=== PATIENT | female | born 1955 | race Caucasian/White ===

== ENCOUNTER 2017-03-02 06:31 | Inpatient (IN) ==
[2017-03-02] MEDS ORDERED: 0.9 % Sodium Chloride 1,000 ML IVC ONE (06:46)
[2017-03-02] MEDS ORDERED: Aspirin 81 MG TAB.CHEW PO ONE (06:46)
--- NOTE | 2017-03-02 07:09 | Emergency Department Note ---
Disposition Clinical Impression: CVA (cerebral vascular accident) Qualifiers: CVA mechanism: unspecified Qualified Code(s): I63.9 - Cerebral infarction, unspecified Disposition: Admitted As Inpatient Condition: Fair Time of Disposition: 08:36 Neuro HPI - General Chief Complaint: ED Neuro Symptoms/Deficit Stated Complaint: "possible stroke" Time Seen by Provider: 03/02/17 06:37 Source: patient, family Limitations: no limitations Nursing Notes Reviewed: Yes Vital Signs Reviewed: Yes - History of Present Illness HPI Narrative: Patient is a 61-year-old female who presents to [facility] ED with a chief complaint of left-sided weakness. She is present with her sister who states she went to visit the patient on February 27 and noticed that she was dragging her left leg and walking with a crutch. Then patient was doing the same thing again on February 28 and patient reports that she tried to get a 7-Up and dropped it. Around 4 AM this morning, the sister checked on her and realized that she had fallen in the bathroom. Denies loss of consciousness. Patient is not on any blood thinning medications. At baseline, patient is able to walk, she is able to read very basic words. She is MRDD. Denies any nausea, vomiting, fever or chills. No difficulty with speech from her baseline. No visual changes or changes in hearing. No chest pain, difficulty breathing, abdominal pain, problems with urination or bowel movements. Onset of Symptoms Date: 02/27/17 Symptom Onset Unknown: Yes Timing confirmed by: family member Location: left arm, left leg History of same: No Severity: moderate Quality: weakness Symptoms Improving: No Improves with: none Worsens with: none Context: gradual onset, recent fall On Anticoagulants: No Associated symptoms: Reports: denies other symptoms, weakness. Denies: chest pain, cough, fever/chills, nausea/vomiting, shortness of breath Treatments Prior to Arrival: none - Related Data Home Medications: Home Medications Medication Instructions Recorded Confirmed FLUoxetine HCl [PROzac] 20 mg PO DAILY 08/26/16 03/02/17 Simvastatin [Zocor] 40 mg PO HS 08/26/16 03/02/17 Divalproex (24 HR) [Depakote ER 250 mg PO QAM 03/02/17 03/02/17 (24 HR)] Divalproex (24 HR) [Depakote ER 500 mg PO HS 03/02/17 03/02/17 (24 HR)] Gabapentin [Neurontin] 800 mg PO TID 03/02/17 03/02/17 Allergies/Adverse Reactions: Allergies Allergy/AdvReac Type Severity Reaction Status Date / Time No Known Allergies Allergy Verified 08/26/16 08:19 All systems ED: reviewed and negative except as stated. Past Medical History - Past Medical History Attestation: Yes The following information was validated with the patient. Source: patient Medical history: Reports: hyperlipidemia Psychiatric history: Reports: bipolar - Social History Smoking Status: Current every day smoker Alcohol use: Reports: none Drug use: Reports: none Physical Exam CONSTITUTIONAL: Well-appearing; well-nourished; A&O X3, in no apparent distress , no evidence of shock HEAD: Normocephalic; atraumatic. No sylvester sign, raccoon eyes or evidence of CSF drainage EYES: PERRL, EOMI, no scleral icterus EARS: No hemotympanum or TM rupture, no otorrhea NECK: No tracheal deviation, JVD, or hematoma. Palpation of the posterior cervical spine reveals tenderness in C6-7 NOSE: The nose is normal in appearance without rhinorrhea, epistaxis, or septal hematoma. MOUTH: Normal with intact dentition CHEST: no chest tenderness with palpation RESP: Normal chest excursion with respiration, no paradoxical motion, subcutaneous emphysema. The breath sounds are clear and equal bilaterally CARD: Regular rhythm, without murmurs, rub or gallop ABD: No distention, ecchymosis, abrasions. Non-tender, soft, without rigidity , rebound or guarding PELVIS: No laxity or tenderness with palpation or compression EXT: Good ROM without tenderness, deformity. Pulses 2+ in 4 extremities SKIN: Normal for age and race; warm and dry; no apparent lesions, not pale or diaphoretic NEUROLOGICAL: Patient is alert and oriented times three. Cranial nerves III- XII are intact. Sensory functions are intact. Strength is 5/5 for flexion and extension in RUE and LLE extremities; 3/5 in LUE, 1/5 in LLE. Patellar DTRS are equal and intact. Finger to nose testing is equal and normal bilaterally. - General Limitations: no limitations General appearance: alert, in no apparent distress Course Course Narrative: Patient seen and examined. Left upper extremity and left lower extremity weakness since several days ago. Unknown last well time. Patient is out of the window for any TPA. Neurologic exam shows marked weakness on the left side leg worse than arm. NIH score of 4. CT of the head, lab work ordered. We will likely admit for stroke workup. - Reevaluation(s) Reevaluation #1: Radiology Dr. Siddiqui . R parietal lobe infaction 2 days; cervical scan unremarkable. C spine cleared. Lab work appears unremarkable. I discussed case with hospitalist Dr. Campo who has accepted patient for admission. Time: 08:36 Vital Signs Temperature 98.2 F 03/02/17 06:33 Pulse Rate 81 03/02/17 06:33 Respiratory Rate 18 03/02/17 06:33 Blood Pressure 165/76 03/02/17 06:33 O2 Sat by Pulse Oximetry 96 03/02/17 06:33 Temperature 98.2 F 03/02/17 06:33 Pulse Rate 70 03/02/17 07:39 Respiratory Rate 16 03/02/17 08:59 Blood Pressure 158/86 03/02/17 08:59 O2 Sat by Pulse Oximetry 94 03/02/17 07:39 Oxygen Delivery Oxygen Delivery Room Air Neuro Symptoms/Deficit - Medical Records Medical records reviewed: Yes I reviewed the patient's medical records. - Lab Data Lab results reviewed: Yes I reviewed the patient's lab results. Result diagrams: 03/02/17 07:33 03/02/17 08:31 Lab Results 03/02/17 03/02/17 03/02/17 Range/Units 07:28 07:28 07:33 WBC 8.8 (4.3-11.1) K/mcL RBC 4.80 (3.82-4.97) M/mcL Hgb 14.9 (11.5-15.4) g/dL Hct 43.6 (35.3-44.9) % MCV 90.8 (83.0-100.0) fL MCH 31.0 (28.0-33.3) pg MCHC 34.2 (31.6-35.5) g/dL RDW 14.7 H (11.5-14.5) % Plt Count 133 L (140-400) K/mcL MPV 12.5 H (9.4-12.4) fL Immature Gran % 0.5 (0-4) % Seg Neutrophils % 58.7 % Lymphocytes % 29.8 % Monocytes % 9.8 % Eosinophils % 0.6 % Basophils % 0.6 % Neutrophils # 5.2 (1.6-8.9) K/mcL Lymphocytes # 2.6 (0.6-4.6) K/mcL Monocytes # 0.9 (0.0-1.3) K/mcL Eosinophils # 0.1 (0.0-0.6) K/mcL Basophils # 0.1 (0.0-0.2) K/mcL PT (9.4-12.1) Seconds INR APTT (26.0-36.0) Seconds Sodium (136-145) mEq/L Potassium (3.5-4.5) mEq/L Chloride (98-109) mEq/L Carbon Dioxide (19-29) mEq/L BUN (7-20) mg/dL Creatinine (0.57-1.11) mg/dL Est GFR ( Amer) (> 60) Est GFR (Non-Af Amer) (> 60) BUN/Creatinine Ratio (6-26) Glucose (70-99) mg/dL Calculated Osmolality (280-300) Calcium (8.6-10.8) mg/dL Creatine Kinase (29-168) Units/L Troponin I (0-0.03) ng/mL Urine Color Yellow (Yellow) Urine Clarity Clear (Clear) Urine pH 6.5 (5.0-8.0) pH Units Ur Specific [place]upe 1.019 (1.010-1.025) Urine Protein Negative (Neg-Trace) mg/dL Urine Glucose (UA) Normal (Normal) mg/dL Urine Ketones Negative (Negative) mg/dL Urine Blood Trace H (Negative) Urine Nitrite Negative (Negative) Urine Bilirubin Negative (Negative) Urine Urobilinogen Normal (Normal) mg/dL Ur Leukocyte Esterase Small H (Negative) Urine Microscopic RBC 0-3 (0-3) per hpf Urine Microscopic WBC 0-3 (0-3) per hpf Ur Squamous Epith Cells Few (None-Few) per lpf Urine Bacteria Few (None-Few) per hpf Hyaline Casts None Seen (None-Few) per lpf Ur Culture Indicated? YES A (NO) Urine Opiates Screen Negative (Aynczz=551) ng/mL Ur Barbiturates Screen Negative (Brffip=208) ng/mL Ur Phencyclidine Scrn Negative (Cutoff=25) ng/mL Ur Amphetamines Screen Negative (Iwzlvc=6590) ng/mL U Benzodiazepines Scrn Negative (Ujyult=876) ng/mL Urine Cocaine Screen Negative (Cutoff= 300) ng/mL U Marijuana (THC) Screen Negative (Cutoff = 50) ng/mL Specimen Rejected 03/02/17 03/02/17 03/02/17 Range/Units 07:33 07:33 08:31 WBC (4.3-11.1) K/mcL RBC (3.82-4.97) M/mcL Hgb (11.5-15.4) g/dL Hct (35.3-44.9) % MCV (83.0-100.0) fL MCH (28.0-33.3) pg MCHC (31.6-35.5) g/dL RDW (11.5-14.5) % Plt Count (140-400) K/mcL MPV (9.4-12.4) fL Immature Gran % (0-4) % Seg Neutrophils % % Lymphocytes % % Monocytes % % Eosinophils % % Basophils % % Neutrophils # (1.6-8.9) K/mcL Lymphocytes # (0.6-4.6) K/mcL Monocytes # (0.0-1.3) K/mcL Eosinophils # (0.0-0.6) K/mcL Basophils # (0.0-0.2) K/mcL PT 10.2 (9.4-12.1) Seconds INR 1.0 APTT 22.1 L (26.0-36.0) Seconds Sodium 139 (136-145) mEq/L Potassium 4.0 (3.5-4.5) mEq/L Chloride 108 (98-109) mEq/L Carbon Dioxide 22 (19-29) mEq/L BUN 6 L (7-20) mg/dL Creatinine 0.62 (0.57-1.11) mg/dL Est GFR ( Amer) > 60 (> 60) Est GFR (Non-Af Amer) > 60 (> 60) BUN/Creatinine Ratio 10 (6-26) Glucose 89 (70-99) mg/dL Calculated Osmolality 285 (280-300) Calcium 8.8 (8.6-10.8) mg/dL Creatine Kinase 66 (29-168) Units/L Troponin I (0-0.03) ng/mL Urine Color (Yellow) Urine Clarity (Clear) Urine pH (5.0-8.0) pH Units Ur Specific Gu[place]upe (1.010-1.025) Urine Protein (Neg-Trace) mg/dL Urine Glucose (UA) (Normal) mg/dL Urine Ketones (Negative) mg/dL Urine Blood (Negative) Urine Nitrite (Negative) Urine Bilirubin (Negative) Urine Urobilinogen (Normal) mg/dL Ur Leukocyte Esterase (Negative) Urine Microscopic RBC (0-3) per hpf Urine Microscopic WBC (0-3) per hpf Ur Squamous Epith Cells (None-Few) per lpf Urine Bacteria (None-Few) per hpf Hyaline Casts (None-Few) per lpf Ur Culture Indicated? (NO) Urine Opiates Screen (Bwyewh=530) ng/mL Ur Barbiturates Screen (Goxrdp=006) ng/mL Ur Phencyclidine Scrn (Cutoff=25) ng/mL Ur Amphetamines Screen (Fdgbos=3021) ng/mL U Benzodiazepines Scrn (Uqxzkv=983) ng/mL Urine Cocaine Screen (Cutoff= 300) ng/mL U Marijuana (THC) Screen (Cutoff = 50) ng/mL Specimen Rejected Hemolyzed 03/02/17 Range/Units 08:31 WBC (4.3-11.1) K/mcL RBC (3.82-4.97) M/mcL Hgb (11.5-15.4) g/dL Hct (35.3-44.9) % MCV (83.0-100.0) fL MCH (28.0-33.3) pg MCHC (31.6-35.5) g/dL RDW (11.5-14.5) % Plt Count (140-400) K/mcL MPV (9.4-12.4) fL Immature Gran % (0-4) % Seg Neutrophils % % Lymphocytes % % Monocytes % % Eosinophils % % Basophils % % Neutrophils # (1.6-8.9) K/mcL Lymphocytes # (0.6-4.6) K/mcL Monocytes # (0.0-1.3) K/mcL Eosinophils # (0.0-0.6) K/mcL Basophils # (0.0-0.2) K/mcL PT (9.4-12.1) Seconds INR APTT (26.0-36.0) Seconds Sodium (136-145) mEq/L Potassium (3.5-4.5) mEq/L Chloride (98-109) mEq/L Carbon Dioxide (19-29) mEq/L BUN (7-20) mg/dL Creatinine (0.57-1.11) mg/dL Est GFR ( Amer) (> 60) Est GFR (Non-Af Amer) (> 60) BUN/Creatinine Ratio (6-26) Glucose (70-99) mg/dL Calculated Osmolality (280-300) Calcium (8.6-10.8) mg/dL Creatine Kinase (29-168) Units/L Troponin I 0.00 (0-0.03) ng/mL Urine Color (Yellow) Urine Clarity (Clear) Urine pH (5.0-8.0) pH Units Ur Specific [place]upe (1.010-1.025) Urine Protein (Neg-Trace) mg/dL Urine Glucose (UA) (Normal) mg/dL Urine Ketones (Negative) mg/dL Urine Blood (Negative) Urine Nitrite (Negative) Urine Bilirubin (Negative) Urine Urobilinogen (Normal) mg/dL Ur Leukocyte Esterase (Negative) Urine Microscopic RBC (0-3) per hpf Urine Microscopic WBC (0-3) per hpf Ur Squamous Epith Cells (None-Few) per lpf Urine Bacteria (None-Few) per hpf Hyaline Casts (None-Few) per lpf Ur Culture Indicated? (NO) Urine Opiates Screen (Febmae=986) ng/mL Ur Barbiturates Screen (Rzcdxr=803) ng/mL Ur Phencyclidine Scrn (Cutoff=25) ng/mL Ur Amphetamines Screen (Tsazgy=9762) ng/mL U Benzodiazepines Scrn (Ilovhg=868) ng/mL Urine Cocaine Screen (Cutoff= 300) ng/mL U Marijuana (THC) Screen (Cutoff = 50) ng/mL Specimen Rejected - Radiology Data Radiology results reviewed: Yes I reviewed the patient's radiology results. Chest X-Ray 03/02/17 06:46 IMPRESSION: No active cardiopulmonary disease D/ / Helio Acuna MD / Helio Acuna MD Interpreting Provider: Helio Acuna MD Head CT 03/02/17 06:47 IMPRESSION: 1. Acute/ early subacute right parietal lobe infarction involving the posterior division of the right middle cerebral artery territory. No associated hemorrhage. 2. Mild diffuse brain parenchymal volume loss. Sequela of chronic microvascular ischemic changes. Findings were discussed with Dr. Agudelo at 8:36 am on 03/02/2017. D/ / Madison Siddiqui MD / Madison Siddiqui MD Interpreting Provider: Madison Siddiqui MD Cervical Spine CT 03/02/17 07:36 IMPRESSION: No acute abnormality of the cervical spine. D/ / Helio Acuna MD / Helio Acuna MD Interpreting Provider: Helio Acuna MD Hip X-Ray 03/02/17 07:52 IMPRESSION: Negative D/ / Helio Acuna MD / Helio Acuna MD Interpreting Provider: Helio Acuna MD - EKG Data EKG attestation: Yes I reviewed and interpreted this EKG. EKG results narrative: EKG done at 649 shows normal sinus rhythm with a rate of [address] elevation. There is some signs of ST depression in the lateral leads V4 through V6, 2, 3, aVF. NIH Stroke Scale - Level of Consciousness LOC: Alert - LOC Questions LOC Questions: Answers both correctly - LOC Commands LOC Commands: Performs both correctly - Best Gaze Best Gaze: Normal - Visual Visual: No visual loss - Facial Palsy Facial Palsy: Normal - Motor Arms Motor Arm-Left: Drift, does NOT hit bed Motor Arm-Right: No drift for 10 seconds - Motor Legs Motor Leg-Left: No effort against gravity, limb falls to bed, some movement Motor Leg-Right: No drift for 5 seconds - Limb Ataxia Limb Ataxia: Normal, No Ataxia - Sensory Sensory: Normal - Best Language Best Language: No aphasia - Dysarthria Dysarthria: Normal - Extinction and Inattention Extinction and Inattention: Normal - NIHSS Total Score NIHSS Total Score: 4 Critical Care Time Critical Care Time: Yes Total Critical Care Time: 35 Attestation: Care time 35 minutes Attestation Statement - Attestation Attestation: Patient was seen with resident physician. I reviewed the history, physical, assessment and plan, and agree with the findings. I also personally evaluated this patient and had [id number] time with this patient. 61-year-old female [facility] emergency department with two-day history of Move the left lower extremity. Patient was signed up with her night clerk team. Has a history of MRDD. Apparently she was found on the floor next to her bed this morning. She is unable to move her lower left extremity. Also has some weakness in the left upper extremity. She does not have a history of stroke per family member. On examination vital signs are stable. ENT showed no signs of trauma. Heart regular rhythm and rate. Lungs are clear. Abdomen is soft and nontender. Extremities do not show signs of trauma. Neurologically patient follows all commands. She has decreased strength in the left upper extremity, and almost no movement of her left lower extremity. She also may have slight facial droop on the left side when she tries to smile is not quite as definitive as on the right side, but this is very minimal finding. Skin shows no active disease. ED course patient was signed out by the night clerk team. At that point all labs and CT scan was pending. We will follow up on these reports and then admit the patient to the hospitalist service. The patient is out of the window or any TPA or other such interventions. Hence a stroke alert was not called by the night clerk team. CT scan did not fact revealed approximately 2 day old infarct. Critical care time for this patient was 35 minutes. Hospitalist service is notified. Agree with the resident physician assessment plan.
[2017-03-02 07:38] LABS: Bilirubin,Urine Negative (Negative); Blood,Urine Trace (Negative); Color,Urine Yellow (Yellow); Glucose,Urine (UA) Normal (Normal); Ketones,Urine Negative (Negative); Leukocyte Esterase,Urine Small (Negative); Nitrite,Urine Negative (Negative); PH,Urine 6.5 pH Units (5.0-8.0); Protein,Urine Negative (Neg-Trace); Specific Gravity,Urine 1.019 (1.010-1.025); Urobilinogen,Urine Normal (Normal)
[2017-03-02 07:40] LABS: Basophils # 0.1 K/mcL (0.0-0.2); Basophils % 0.6 %; Eosinophils # 0.1 K/mcL (0.0-0.6); Eosinophils % 0.6 %; Hematocrit 43.6 % (35.3-44.9); Hemoglobin 14.9 g/dL (11.5-15.4); Immature Granulocytes % 0.5 % (0-4); Lymphocytes # 2.6 K/mcL (0.6-4.6); Lymphocytes % 29.8 %; Mean Corpuscular HGB Conc 34.2 g/dL (31.6-35.5); Mean Corpuscular Volume 90.8 fL (83.0-100.0); Mean Platelet Volume 12.5 fL (9.4-12.4); Monocytes # 0.9 K/mcL (0.0-1.3); Monocytes % 9.8 %; Neutrophils # 5.2 K/mcL (1.6-8.9); Platelet Count 133 K/mcL (140-400); Red Cell Distribution Width 14.7 % (11.5-14.5); Segmented Neutrophils % 58.7 %
[2017-03-02 07:42] LABS: Hyaline Casts,Urine None Seen per lpf (None-Few); RBC,Urine 0-3 per hpf (0-3)
[2017-03-02 07:43] LABS: Prothrombin Time 10.2 Seconds (9.4-12.1)
[2017-03-02 07:43] LABS: Clarity,Urine Clear (Clear)
[2017-03-02 07:45] LABS: Amphetamine Screen,Urine Negative ng/mL (Cutoff=1000); Barbiturate Screen,Urine Negative ng/mL (Cutoff=200); Benzodiazepines Screen,Urine Negative ng/mL (Cutoff=200); Cannabinoid Screen,Urine Negative ng/mL (Cutoff = 50); Cocaine Screen,Urine Negative ng/mL (Cutoff= 300); Opiate Screen,Urine Negative ng/mL (Cutoff=300); Phencyclidine Screen,Urine Negative ng/mL (Cutoff=25)
[2017-03-02 07:46] LABS: Activated Partial Thrombo Time 22.1 Seconds (26.0-36.0)
[2017-03-02 08:08] LABS: Squamous Epithelial Cell,Urine Few per lpf (None-Few)
[2017-03-02 08:09] LABS: Bacteria,Urine Few per hpf (None-Few); WBC,Urine 0-3 per hpf (0-3)
[2017-03-02 09:00] LABS: BUN/Creatinine Ratio 10 (6-26); Blood Urea Nitrogen 6 mg/dL (7-20); Calcium 8.8 mg/dL (8.6-10.8); Carbon Dioxide 22 mEq/L (19-29); Chloride 108 mEq/L (98-109); Creatine Kinase 66 Units/L (29-168); Glucose 89 mg/dL (70-99); Osmolality,Calculated 285 (280-300); Sodium 139 mEq/L (136-145); eGFR For African Americans > 60 (> 60); eGFR For Non-African Americans > 60 (> 60)
--- NOTE | 2017-03-02 09:43 | Internal Med History&Physical ---
Date of Encounter: 03/02/17 Time of Encounter: 09:41 Assessment and Plan (1) COPD (chronic obstructive pulmonary disease) Current visit: Yes Status: Acute Stable no active wheezing. Qualifiers: Qualified Code(s): J44.9 - Chronic obstructive pulmonary disease, unspecified (2) Seizure disorder Current visit: Yes Status: Acute Patient is on Depakote continue. (3) Full code status Current visit: Yes Status: Acute According to power of trial attorney, her 2 sisters, patient is full code (4) CVA (cerebral vascular accident) Current visit: Yes Status: Acute Acute right CVA causing left-sided weakness mainly left lower extremity weakness. Moral allen 05/02. Onset of symptoms at least 2 days ago when the family started noticing left leg weakness, however she has been more unsteady with falling since 6 days ago. She is out of window for TPA. We will start patient on aspirin instead. Check Echocardiogram carotid Doppler. Physical therapy, occupational therapy to see the patient to decide on disposition given severe left leg weakness. Keep NPO till speech therapy see the patient. Qualifiers: CVA mechanism: unspecified Qualified Code(s): I63.9 - Cerebral infarction, unspecified (5) Smoking Current visit: Yes Status: Acute She smokes one pack of cigarettes daily. Will give nicotine patch Internal Medicine - H&P: HPI Chief complaint: left side weakness History of present illness: Ms. Barragan is a 61 year old female who is mentally challenged, with history of COPD, smokes one pack of cigarettes daily, who is right-handed presents to the emergency room today brought by her sisters which are her caregivers because of increased falls. Sisters noted that at least for the past 2 days they have been noticing weakness of the left lower extremity. the patient is limping and having more falls. actually since Friday, 6 days ago , there has been a change in her ability to walk where she was more unsteady stumbling more frequently. There has been no change in her speech for facial symmetry. No fever chills cough expectoration urinary symptoms or diarrhea. CT scan performed in the emergency room shows acute right CVA Past Med Surg Social Fam HX - Past Medical History Medical history: hyperlipidemia Psychiatric history: bipolar - Social History Smoking Status: Current every day smoker Alcohol use: none Drug use: none Internal Medicine - H&P: Meds FLUoxetine HCl [PROzac] 20 mg PO DAILY 08/26/16 [History] Simvastatin [Zocor] 40 mg PO HS 08/26/16 [History] Divalproex (24 HR) [Depakote ER (24 HR)] 250 mg PO QAM 03/02/17 [History] Divalproex (24 HR) [Depakote ER (24 HR)] 500 mg PO HS 03/02/17 [History] Gabapentin [Neurontin] 800 mg PO TID 03/02/17 [History] 3 Allergy/AdvReac Type Severity Reaction Status Date / Time No Known Allergies Allergy Verified 08/26/16 08:19 All Systems PM: A 10-system review of systems was performed and is negative for pertinent findings except as documented above in the HPI. Review of systems: 10 point review of systems is negative except for HPI - Constitutional Vitals: Temp Pulse Resp BP Pulse Ox 98.2 F 70 16 158/86 94 03/02/17 06:33 03/02/17 07:39 03/02/17 08:59 03/02/17 08:59 03/02/17 07:39 Exam: Gen.: patient is alert oriented times 3 cardiac: normal S1 S2 no additional sounds or murmurs chest: no active wheezing or bronchial breathing abdomen soft nontender nondistended normal bowel sounds lower extremity no swelling. Neuro: Left lower extremity motor power 1/5. Internal Med - H&P Results - Labs CBC & Chem 7: 03/02/17 07:33 03/02/17 08:31
[2017-03-02] MEDS: Nicotine 21 MG PATCH.TD24 TD SCH (10:46)
--- NOTE | 2017-03-02 11:50 | Neurology - Consult Note ---
Date of Encounter: 03/02/17 Time of Encounter: 11:48 Assessment and Plan (1) CVA (cerebral vascular accident) Current Visit: Yes Status: Acute I did review the CT scan of the brain and it does reveal an area of infarct which is likely subacute involving the right parietal lobe region. Her risk factors including hyperlipidemia, hypertension, cigarette smoking. She was given an aspirin in the ED, I recommend maintaining aspirin at least 81 mg daily. Smoking cessation and risk factor management will be paramount. Carotid duplex Doppler and echocardiogram are yet pending. She will also need PT, OT, and speech therapy. She may need a short inpatient rehabilitation stay if she is not strong enough to walk. I will check a valproate level, as well as MRI scan of the brain with and without contrast given her history of recent onset seizure. I do not feel it necessary to obtain an EEG. Stroke protocol orders should be implemented. Qualifiers: CVA mechanism: unspecified Qualified Code(s): I63.9 - Cerebral infarction, unspecified History of Present Illness HPI: Ms. Barragan is a 61 year old female with a history of MRDD who was seen for neurologic evaluation secondary to new onset left-sided weakness which is likely secondary to a right parietal lobe infarct. She lives at home with one of her sisters who is her primary caregiver. But her MRDD is mild and she is for the most part functional. Apparently on February 27 and first noticed that she seemed to have some left arm and left leg weakness. She began using an old cane that she had previously she was using for hip pain. Then a day or 2 later she and her sister noticed a left facial droop so they decided to bring her in for further assessment. Apparently she had an episode of generalized tonic- clonic seizure a year ago and has been on valproate since then. She also has bipolar disorder. CT scan of the brain did reveal a subacute right parietal lobe infarct, along with chronic deep white matter changes. Blood pressure upon admission was 165/ 76. Her labs were all essentially normal. Carotid duplex Doppler and echocardiogram are pending. She is a one pack a day smoker and has a history of hyperlipidemia. She was started on aspirin 325 mg daily since admission. She was not taking aspirin prior to this event. Past Med Surg Social Fam HX - Past Medical History Medical history: hyperlipidemia Psychiatric history: bipolar - Social History Smoking Status: Current every day smoker Packs per day: 1 pack Alcohol use: none Drug use: none - Family History Mother Living Status: Age at : 73 Cause of : lymphoma Hx Family Cardiac Disorders: Yes Hx Family Respiratory Disorders: Yes Hx Family Cancer: Yes Father Living Status: Age at : 69 Hx Family Cardiac Disorders: Yes Medications and Allergies FLUoxetine HCl [PROzac] 20 mg PO DAILY 08/26/16 [History] Simvastatin [Zocor] 40 mg PO HS 08/26/16 [History] Divalproex (24 HR) [Depakote ER (24 HR)] 250 mg PO QAM 03/02/17 [History] Divalproex (24 HR) [Depakote ER (24 HR)] 500 mg PO HS 03/02/17 [History] Gabapentin [Neurontin] 800 mg PO TID 03/02/17 [History] 3 Allergy/AdvReac Type Severity Reaction Status Date / Time No Known Allergies Allergy Verified 08/26/16 08:19 All Systems: A 10-system review of systems was performed and is negative for pertinent findings except as documented above in the HPI. Review of Systems: Review of systems is consistent with the history of present illness and is otherwise negative. 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 She is able to follow some simple commands however does have some motor impersistence. She is not aphasic however her speech is consistent with her mental age. Cranial nerves-pupils are equal and reactive to light. Sensory to face is intact. Mastication is intact. She does have dysarthric speech, she also has a very slight left facial droop however she is edentulous. Tongue protrudes midline. Motor exam-she does have a bit of clumsiness of the left upper extremity she also has weakness of the left upper extremity but she does have antigravity strength. She is able to raise the left arm above her head, she is able to raise the left leg off the bed. Her estimated strength of the left upper and left lower extremity is 3-4/5. She has normal strength bulk and tone of the right upper and right lower extremities. There are no involuntary movements or atrophy present. Sensory exam-there is left hemihypoesthesia present. Deep tendon reflexes-1 symmetrically in the biceps triceps brachial radialis, 2 + symmetrically of the patellar. Achilles reflexes are 1 symmetrically. No Clonus or Babinski are present. Results - Laboratory Findings CBC and BMP: 03/02/17 07:33 03/02/17 08:31 Abnormal lab findings: Abnormal lab results RDW 14.7 % (11.5-14.5) H 03/02/17 07:33 Plt Count 133 K/mcL (140-400) L 03/02/17 07:33 MPV 12.5 fL (9.4-12.4) H 03/02/17 07:33 APTT 22.1 Seconds (26.0-36.0) L 03/02/17 07:33 BUN 6 mg/dL (7-20) L 03/02/17 08:31 Urine Blood Trace (Negative) H 03/02/17 07:28 Ur Leukocyte Esterase Small (Negative) H 03/02/17 07:28 Ur Culture Indicated? YES (NO) A 03/02/17 07:28 Consult Discharge Plan - Plan Referrals: Karishma Barragan, NEUROPSYCHOLOGIST [Primary Care Provider] -
[2017-03-02] MEDS: Gabapentin 400 MG CAPSULE PO SCH ×2 (14:42→20:48)
[2017-03-02] MEDS: *HR* Heparin 5,000 UNIT/ML VIAL SQ SCH (17:40)
[2017-03-02] MEDS: Divalproex (24 HR) 500 MG TABLET PO SCH (20:48)
[2017-03-03] MEDS: *HR* Heparin 5,000 UNIT/ML VIAL SQ SCH ×2 (05:28→18:08)
[2017-03-03] MEDS ORDERED: Aspirin Enteric Coated 325 MG Tablet PO SCH (09:00)
[2017-03-03] MEDS: Divalproex (24 HR) 250 MG TABLET PO SCH (09:25)
[2017-03-03] MEDS: Gabapentin 400 MG CAPSULE PO SCH ×3 (09:26→20:23)
[2017-03-03] MEDS: Famotidine 20 MG/2 ML VIAL IVP SCH (09:26)
--- NOTE | 2017-03-03 14:58 | Internal Med Progress Note ---
Date of Encounter: 03/03/17 Time of Encounter: 11:45 - Assessment and plan (1) CVA (cerebral vascular accident) Current Visit: Yes Status: Acute Assessment and plan: Patient presents with facial droop and left-sided weakness. CT head showed acute infarct in right parietal lobe. Urology consult and follow-up appreciated , started aspirin. Continue statin. MRI brain shows multiple ischemic areas in right frontal and parietal lobes, consistent with moderate stroking right MCA territory. Follow-up carotid Doppler and echocardiogram. Physical and occupational therapy evaluation. Supportive care. Qualifiers: CVA mechanism: thrombosis Precerebral and cerebral artery: middle cerebral artery Laterality of affected vessel: right Qualified Code(s): I63.311 - Cerebral infarction due to thrombosis of right middle cerebral artery (2) Tobacco abuse Current Visit: Yes Status: Chronic Assessment and plan: According to notes, patient has some developmental delay. Unable to comprehend her current diagnosis, not amenable to smoking cessation counseling. Continue nicotine transdermal patch as needed. (3) Bipolar disorder Current Visit: Yes Status: Chronic Assessment and plan: Resume home medications. Qualifiers: Active/Remission status: remission status unspecified Qualified Code(s): F31.9 - Bipolar disorder, unspecified (4) COPD (chronic obstructive pulmonary disease) Current Visit: Yes Status: Chronic Assessment and plan: Noted acute exacerbation. Continue bronchodilators and supplemental oxygen as needed. Qualifiers: COPD type: unspecified COPD Qualified Code(s): J44.9 - Chronic obstructive pulmonary disease, unspecified (5) Seizure disorder Current Visit: Yes Status: Chronic Assessment and plan: Valproic acid level noted to be subtherapeutic. Follow neurology recommendations. - Subjective Interval history: Reports feeling well; unable to comprehend her diagnosis, seems to answer inappropriately at times; has slurred speech, left leg weakness; no chest or abdominal pain; - Constitutional Vitals: Temp Pulse Resp BP Pulse Ox 97.9 F 69 16 127/77 98 03/03/17 11:29 03/03/17 11:29 03/03/17 11:29 03/03/17 11:29 03/03/17 11:29 General appearance: Present: A&O X 2. Absent: answers questions appropriately - Respiratory Respiratory exam: Present: CTAB. Absent: accessory muscle use, rales, rhonchi, wheezes - Cardiovascular Cardiovascular exam: Present: RRR, +S1, +S2. Absent: diastolic murmur, gallop, rubs, systolic murmur - GI/Abdominal GI/Abdominal exam: Present: normal bowel sounds, soft, no peritoneal signs. Absent: distended, tenderness - Extremities Exam Extremities exam: Present: full ROM, warm, radial pulses palpable and symmetrical. Absent: calf tenderness, cyanotic, pedal edema - Neurological Exam Neurological exam: Present: CN II-XII intact (right facial droop, slurred speech ), no focal deficits (left-sided weakness). Absent: pronater drift, facial droop, speech deficit - Skin Skin exam: Present: dry, intact Internal Medicine: Result - Labs CBC & Chem 7: 03/02/17 07:33 03/02/17 08:31 - ABG Interpretation ABG results: PT/INR, D-dimer PT 10.2 Seconds (9.4-12.1) 03/02/17 07:33 - Impressions Impressions Brain MRI 03/03/17 11:57 IMPRESSION: Several areas of acute ischemia within the posterior right frontal lobe and right parietal lobe are compatible with a moderate-sized acute right MCA infarct. Moderate chronic small vessel ischemic disease within the periventricular white matter. Mild atrophy. D/ / 03/03/2017 13:56:54 Jaren Godwin MD / sheyla Interpreting Provider: Jaren Godwin MD Consult Discharge Plan - Plan Instructions: Cigarette Smoking and Your Health (GEN) Referrals: Karishma Barragan SCRAP PREPARER [Primary Care Provider] -
[2017-03-03] MEDS: Nicotine 21 MG PATCH.TD24 TD SCH (15:55)
--- NOTE | 2017-03-03 16:09 | Neurology Progress Note ---
Date of Encounter: 03/03/17 Time of Encounter: 16:07 Assessment and Plan (1) CVA (cerebral vascular accident) Current Visit: Yes Status: Acute Qualifiers: CVA mechanism: unspecified Qualified Code(s): I63.9 - Cerebral infarction, unspecified Subjective Interval history: On the pleasure of following up with Merry Barragan today for complications of her right cerebral hemispheric infarct. On examination she still has some measure of weakness of the left upper and left lower extremity. MRI scan of the brain did reveal acute infarct in the territory of the right middle cerebral artery. Carotid duplex Doppler study revealed nonstenotic plaquing. Echocardiogram was negative. Incidentally how her valproate level was low at 5.4. But she is awake and alert sitting up in the chair her sisters present and she is back to her normal baseline cognition. Objective - Constitutional Vitals: Temp Pulse Resp BP Pulse Ox 99.2 F 74 15 132/80 98 03/03/17 15:56 03/03/17 15:56 03/03/17 15:56 03/03/17 15:56 03/03/17 15:56 - Neurological Exam Motor examination - right side: 5/5: deltoids, biceps, triceps, human resources communications manager, hip flexors, tibialis Anterior, quadriceps, toe extension (EHL), plantarflexion Motor examination - left side: 4/5: deltoids, biceps, triceps, hip flexors, quadriceps, tibialis Anterior, toe extension (EHL), plantarflexion, 5/5: human resources communications manager Reflex and gait examination: other (No long tract signs are present.) Reflexes: Biceps: 1+, Triceps: 1+, Brachioradialis: 1+, Patella: 1+, Achilles: 1 + Mental Status Examination: Present: awake, alert, oriented to person (Patient is MRDD, but is back to her normal cognitive baseline.), cognitive impairment ( Congenital) Cranial nerve examination: Present: PERRL, EOMI, corneal reflexes brisk symmetrically Results - Laboratory Findings CBC and BMP: 03/02/17 07:33 03/02/17 08:31 Abnormal lab findings: Abnormal lab results RDW 14.7 % (11.5-14.5) H 03/02/17 07:33 Plt Count 133 K/mcL (140-400) L 03/02/17 07:33 MPV 12.5 fL (9.4-12.4) H 03/02/17 07:33 APTT 22.1 Seconds (26.0-36.0) L 03/02/17 07:33 BUN 6 mg/dL (7-20) L 03/02/17 08:31 POC Glucose 91 (58-89) H 03/02/17 20:26 Urine Blood Trace (Negative) H 03/02/17 07:28 Ur Leukocyte Esterase Small (Negative) H 03/02/17 07:28 Ur Culture Indicated? YES (NO) A 03/02/17 07:28 Valproic Acid 5.40 mcg/mL (50-100) L 03/02/17 12:34 Consult Discharge Plan - Plan Referrals: Karishma Barragan, BLUEPRINT PROCESSOR [Primary Care Provider] -
[2017-03-03] MEDS ORDERED: Valproic Acid INJ 1,000 MG in 0.9 % Sodium Chloride 100 ML IVPB ONE (16:12)
--- NOTE | 2017-03-03 16:52 | Electrocardiograph Report ---
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
[2017-03-03] MEDS: Divalproex (24 HR) 500 MG TABLET PO SCH (20:24)
[2017-03-04] MEDS: *HR* Heparin 5,000 UNIT/ML VIAL SQ SCH ×2 (05:55→17:16)
[2017-03-04] MEDS: Divalproex (24 HR) 250 MG TABLET PO SCH (08:05)
[2017-03-04] MEDS: Aspirin Enteric Coated 81 MG Tablet PO SCH (08:05)
[2017-03-04] MEDS: Gabapentin 400 MG CAPSULE PO SCH ×3 (08:05→21:15)
[2017-03-04] MEDS: Famotidine 20 MG/2 ML VIAL IVP SCH (08:05)
[2017-03-04] MEDS: Nicotine 21 MG PATCH.TD24 TD SCH (08:06)
[2017-03-04] MEDS ORDERED: Acetaminophen 325 MG TABLET PO PRN (11:53)
--- NOTE | 2017-03-04 19:01 | Internal Med Progress Note ---
Date of Encounter: 03/04/17 Time of Encounter: 15:30 - Assessment and plan (1) CVA (cerebral vascular accident) Current Visit: Yes Status: Acute Assessment and plan: She presented to the emergency department with facial droop and left-sided weakness. CT head showed acute infarct in the right parietal lobe. Neurology saw the patient and consulted started aspirin, we will continue statin. MRI brain shows multiple ischemic areas in the right frontal and parietal lobes, consistent with moderate stenosis and right MCA territory. Bilateral carotids showed nonstenotic plaque. Patient has sensation to left lower extremity, although it is weaker. Patient ambulates with assistance. Patient has been seen by PT and OT. I have recommended continued PT and a swing bed. She is waiting on available bed at [facility] in [place]. Lipid panel ordered and pending for the morning. Continue aspirin, statin. Nicotine patch for smoking cessation. Qualifiers: CVA mechanism: thrombosis Precerebral and cerebral artery: middle cerebral artery Laterality of affected vessel: right Qualified Code(s): I63.311 - Cerebral infarction due to thrombosis of right middle cerebral artery (2) COPD (chronic obstructive pulmonary disease) Current Visit: Yes Status: Chronic Assessment and plan: Noted acute exacerbation. Continue bronchodilators and supplemental oxygen as needed. Titrate oxygen as needed to maintain sats greater than 92%. Qualifiers: COPD type: unspecified COPD Qualified Code(s): J44.9 - Chronic obstructive pulmonary disease, unspecified (3) Seizure disorder Current Visit: Yes Status: Chronic Assessment and plan: Valproic acid level noted to be subtherapeutic. Follow neurology recommendations. Patient was given valproic acid 1000 mg, will redraw level in the morning. (4) Full code status Current Visit: Yes Status: Acute (5) Smoking Current Visit: Yes Status: Acute Assessment and plan: Encourage smoking cessation. Nicotine patch as needed. - Time Spent With Patient less than 15 minutes - Subjective Interval history: Patient was seen and assessed at bedside at 1530. She denies dizziness, nausea , vomiting, diaphoresis. She reports weakness to left lower extremity. She was able to ambulate with assistance. She does have sensation. Patient is waiting on placement at [facility] [place]. - Constitutional Vitals: Temp Pulse Resp BP Pulse Ox 98.2 F 78 16 122/73 98 03/04/17 14:59 03/04/17 14:59 03/04/17 14:59 03/04/17 14:59 03/04/17 14:59 General appearance: Present: A&O X 3, pleasant, no acute distress, answers questions appropriately - Head Head exam: Present: atraumatic, normal inspection, normocephalic - Eye Eye exam: Present: normal appearance, conjuntiva pink, sclera anicteric - Neck Neck exam general surgery: Present: supple, trachea midline. Absent: lymphadenopathy - Respiratory Respiratory exam: Present: CTAB. Absent: accessory muscle use, rales, rhonchi, wheezes - Cardiovascular Cardiovascular exam: Present: RRR, +S1, +S2. Absent: diastolic murmur, gallop, rubs, systolic murmur - GI/Abdominal GI/Abdominal exam: Present: normal bowel sounds, soft. Absent: distended, hepatomegaly, tenderness - Extremities Exam Extremities exam: Present: normal capillary refill, normal inspection, warm, radial pulses palpable and symmetrical. Absent: calf tenderness, cyanotic, pedal edema, tenderness - Neurological Exam Neurological exam: Present: alert, oriented X3, no focal deficits. Absent: facial droop, speech deficit - Skin Skin exam: Present: dry, intact, normal color, warm. Absent: rash Internal Medicine: Result - Labs CBC & Chem 7: 03/02/17 07:33 03/02/17 08:31 - ABG Interpretation ABG results: PT/INR, D-dimer PT 10.2 Seconds (9.4-12.1) 03/02/17 07:33 Consult Discharge Plan - Plan Instructions: Cigarette Smoking and Your Health (GEN), Hyperlipidemia (GEN) Referrals: Karishma Barragan, RESEARCH LIBRARIAN [Primary Care Provider] -
[2017-03-04] MEDS: Divalproex (24 HR) 500 MG TABLET PO SCH (21:16)
[2017-03-05 05:37] LABS: Basophils # 0.1 K/mcL (0.0-0.2); Basophils % 0.8 %; Eosinophils # 0.1 K/mcL (0.0-0.6); Eosinophils % 1.3 %; Hematocrit 41.1 % (35.3-44.9); Hemoglobin 14.3 g/dL (11.5-15.4); Immature Granulocytes % 0.7 % (0-4); Lymphocytes # 3.3 K/mcL (0.6-4.6); Lymphocytes % 38.3 %; Mean Corpuscular HGB Conc 34.8 g/dL (31.6-35.5); Mean Corpuscular Hemoglobin 31.3 pg (28.0-33.3); Mean Corpuscular Volume 89.9 fL (83.0-100.0); Mean Platelet Volume 11.3 fL (9.4-12.4); Neutrophils # 4.2 K/mcL (1.6-8.9); Platelet Count 194 K/mcL (140-400); Red Blood Count 4.57 M/mcL (3.82-4.97); Red Cell Distribution Width 14.4 % (11.5-14.5); Segmented Neutrophils % 47.9 %
[2017-03-05] MEDS: *HR* Heparin 5,000 UNIT/ML VIAL SQ SCH (06:08)
[2017-03-05 06:11] LABS: BUN/Creatinine Ratio 21 (6-26); Blood Urea Nitrogen 13 mg/dL (7-20); Calcium 9.3 mg/dL (8.6-10.8); Carbon Dioxide 25 mEq/L (19-29); Chloride 104 mEq/L (98-109); Chol/HDL Ratio 2.6 (0-4.9); Cholesterol 143 mg/dL (< 200); Glucose 85 mg/dL (70-99); HDL Cholesterol 55 mg/dL (40-59); LDL Cholesterol,Calculated 76 mg/dL (0-99); Osmolality,Calculated 281 (280-300); Sodium 136 mEq/L (136-145); Triglycerides 58 mg/dL (< 150); eGFR For African Americans > 60 (> 60); eGFR For Non-African Americans > 60 (> 60)
[2017-03-05 06:12] LABS: Potassium 4.2 mEq/L (3.5-4.5)
[2017-03-05 06:34] LABS: Valproate 74.21 mcg/mL (50-100)
[2017-03-05] MEDS: Divalproex (24 HR) 250 MG TABLET PO SCH (08:12)
[2017-03-05] MEDS: Gabapentin 400 MG CAPSULE PO SCH (08:12)
[2017-03-05] MEDS: Aspirin Enteric Coated 81 MG Tablet PO SCH (08:12)
[2017-03-05] MEDS: Nicotine 21 MG PATCH.TD24 TD SCH (08:12)
[2017-03-05] MEDS: Famotidine 20 MG/2 ML VIAL IVP SCH (08:13)
[2017-03-05 11:46] VITALS: BP 137/79
--- NOTE | 2017-03-05 14:24 | Discharge Summary ---
Date of Encounter: 03/05/17 Time of Encounter: 09:10 - Discharge Diagnosis (1) CVA (cerebral vascular accident) Priority: Primary Status: Acute Comments: Pt presented to the emergency department with facial droop and left-sided weakness. CT head showed acute infarct in the right parietal lobe. Neurology saw the patient and started aspirin, we will continue statin. MRI brain shows multiple ischemic areas in the right frontal and parietal lobes, consistent with moderate stenosis and right MCA territory. Bilateral carotids showed nonstenotic plaque. Patient has sensation to left lower extremity, although it is weaker, as is left upper extremity.. Patient ambulates with assistance. She has been seen by PT and OT and they have recommended continued PT and a swing bed. Bed is available at [facility] today. Lipid panel is within normal limits. She will continue aspirin and statin at the assisted. Patient has no apparent deficits other than slight limp. She ambulates with assistance. She has no other focal neurological deficits. Head CT 03/02/17 06:47 IMPRESSION: 1. Acute/ early subacute right parietal lobe infarction involving the posterior division of the right middle cerebral artery territory. No associated hemorrhage. 2. Mild diffuse brain parenchymal volume loss. Sequela of chronic microvascular ischemic changes. Findings were discussed with Dr. Agudelo at 8:36 am on 03/02/2017. D/ / Madison Siddiqui MD / Madison Siddiqui MD Interpreting Provider: Madison Siddiqui MD Brain MRI 03/03/17 11:57 IMPRESSION: Several areas of acute ischemia within the posterior right frontal lobe and right parietal lobe are compatible with a moderate-sized acute right MCA infarct. Moderate chronic small vessel ischemic disease within the periventricular white matter. Mild atrophy. D/ / 03/03/2017 13:56:54 Jaren Godwin MD / sheyla Interpreting Provider: Jaren Godwin MD Qualifiers: CVA mechanism: thrombosis Precerebral and cerebral artery: middle cerebral artery Laterality of affected vessel: right Qualified Code(s): I63.311 - Cerebral infarction due to thrombosis of right middle cerebral artery (2) COPD (chronic obstructive pulmonary disease) Priority: Secondary Status: Chronic Comments: Patient noted to be having an acute exacerbation of COPD. She does have faint rhonchi in the left base. Continue bronchodilators and supplemental oxygen as needed at [facility]. Titrate oxygen as needed to maintain sats greater than 92% . Patient is a current every day smoker, 1 pack of cigarettes daily. Patient has no fever, chills, productive cough, no wheezing or respiratory distress. Qualifiers: COPD type: unspecified COPD Qualified Code(s): J44.9 - Chronic obstructive pulmonary disease, unspecified (3) Seizure disorder Priority: Secondary Status: Chronic Comments: Patient was found to have low valproic acid level on admission. She was given 1000 mg IV. Levels within normal limits today a 74.21. Patient has had seizure precautions in place since arrival. She has had no seizures since admission. Continue medication at assisted. (4) Full code status Priority: Secondary Status: Acute (5) Smoking Priority: Secondary Status: Chronic Comments: Patient reports chronic tobacco use. States that she smokes 1 pack per day. Will send patient with nicotine patch. (6) DVT prophylaxis Priority: Secondary Status: Acute Comments: Heparin SQ, pt has been ambulatory in the room and in the hallways with staff. - Discharge Medications Home Medications: FLUoxetine HCl [Prozac] 20 mg PO DAILY 08/26/16 [History] Simvastatin [Zocor] 40 mg PO HS 08/26/16 [History] Divalproex (24 HR) [Depakote ER (24 HR)] 250 mg PO QAM 03/02/17 [History] Divalproex (24 HR) [Depakote ER (24 HR)] 500 mg PO HS 03/02/17 [History] Gabapentin [Neurontin] 800 mg PO TID 03/02/17 [History] Aspirin Enteric Coated [Aspirin EC] 81 mg PO DAILY tablet. 03/05/17 [Rx] Allergies/Adverse Reactions: 3 Allergy/AdvReac Type Severity Reaction Status Date / Time No Known Allergies Allergy Verified 08/26/16 08:19 Procedures/tests Complete & Pending: Procedures Performed prior 72 hours Category Date Time Status MR head/brain wo/w con [MR] Routine MRI 03/03/17 11:57 Completed EV carotid duplex imaging BI Routine Y 03/03/17 09:35 Completed EV echocardiogram Routine Y 03/03/17 09:35 Completed Date of admission: 03/02/17 09:35 Primary care physician: Karishma Barragan CNP Discharging clinician: Gaby Cleaning Anticipated date of discharge: 03/05/17 - Patient Status Disposition: Transfer SNF Condition: Good Functional capacity at discharge: independent ambulation Overall status at discharge: patient is progressing back to baseline - Discharge Instructions Instructions: Cigarette Smoking and Your Health (GEN), Hyperlipidemia (GEN) Follow Up With: Karishma Barragan CNP [Primary Care Provider] - 03/11/17 9:00 am - Diet and Activity Activity: as per physical therapy Diet: advance to your usual diet Interval History: please see assessment and plan for hospital course. Hospital course: Ms. Barragan is a 61 year old female - Time Spent with Patient Total time spent providing and/or coordinating discharge services: Less than 30 minutes - Constitutional Vitals: Temp Pulse Resp BP Pulse Ox 98.7 F 89 16 137/79 96 03/05/17 11:45 03/05/17 11:45 03/05/17 11:45 03/05/17 11:45 03/05/17 11:45 General appearance: Present: cooperative, A&O X 3, pleasant, no acute distress, answers questions appropriately - Head Head exam: Present: atraumatic, normal inspection, normocephalic - Eye Eye exam: Present: normal appearance, conjuntiva pink, sclera anicteric - Neck Neck exam general surgery: Present: normal inspection, supple, trachea midline. Absent: lymphadenopathy - Respiratory Respiratory exam: Present: CTAB, rhonchi. Absent: accessory muscle use, chest wall tenderness, decreased breath sounds, rales, respiratory distress, wheezes - Cardiovascular Cardiovascular exam: Present: RRR, +S1, +S2. Absent: diastolic murmur, gallop, rubs, systolic murmur - GI/Abdominal GI/Abdominal exam: Present: normal bowel sounds, soft. Absent: distended, hepatomegaly, tenderness - Extremities Exam Extremities exam: Present: normal capillary refill, normal inspection, warm, radial pulses palpable and symmetrical. Absent: calf tenderness, cyanotic, pedal edema - Neurological Exam Neurological exam: Present: alert, motor sensory deficit, oriented X3, no focal deficits. Absent: strengths equal and symetr throughout, facial droop, speech deficit - Skin Skin exam: Present: dry, intact, pallor, warm. Absent: rash
[2017-03-06] MEDS ORDERED: Famotidine 20 MG TABLET PO SCH (09:00)
== END 2017-03-05 15:23 | DRG 66 ==
LOC: EMEROO 06:31 → 3BNU 06:31 → SUATTDRO 09:35 → 3BNU 09:40
PROVIDERS: ADMIT Hospitalist; ATTEND Internal Medicine

== ENCOUNTER 2021-03-14 15:35 | Observation (INO) ==
[2021-03-14 16:22] LABS: Basophils # 0.1 K/mcL (0.0-0.2); Basophils % 0.8 %; Eosinophils % 0.5 %; Hemoglobin 13.4 g/dL (11.5-15.4); Immature Granulocytes % 1.9 % (0-4); Lymphocytes # 4.1 K/mcL (0.6-4.6); Lymphocytes % 46.1 %; Mean Corpuscular HGB Conc 32.7 g/dL (31.6-35.5); Mean Corpuscular Hemoglobin 31.3 pg (28.0-33.3); Mean Corpuscular Volume 95.8 fL (83.0-100.0); Mean Platelet Volume 10.6 fL (9.4-12.4); Monocytes # 1.2 K/mcL (0.0-1.3); Monocytes % 13.2 %; Neutrophils # 3.3 K/mcL (1.6-8.9); Nucleated Red Blood Cells 0.2 /100 WBC (0); Platelet Count 207 K/mcL (140-400); Red Blood Count 4.28 M/mcL (3.82-4.97); Red Cell Distribution Width 13.7 % (11.5-14.5); Segmented Neutrophils % 37.5 %; White Blood Count 8.8 K/mcL (4.3-11.1)
[2021-03-14 16:55] LABS: Troponin I < 0.03 ng/mL (< 0.04)
[2021-03-14 17:27] LABS: BUN/Creatinine Ratio 16 (6-26); Blood Urea Nitrogen 12 mg/dL (8-23); Calcium 9.1 mg/dL (8.6-10.3); Carbon Dioxide 22 mEq/L (23-29); Chloride 97 mEq/L (98-107); Glucose 91 mg/dL (70-105); Osmolality,Calculated 265 (280-300); Potassium 4.5 mEq/L (3.5-5.1); Sodium 128 mEq/L (136-145); Valproate 94 mcg/mL (50-100); eGFR For African Americans > 60 (> 60); eGFR For Non-African Americans > 60 (> 60)
[2021-03-14] MEDS ORDERED: Ondansetron 4 MG/2 ML VIAL IVP PRN (18:52)
[2021-03-14] MEDS ORDERED: Acetaminophen 325 MG TABLET PO PRN (18:52)
[2021-03-14] MEDS ORDERED: Naloxone 0.4 MG/ML INJ IVP PRN (18:52)
[2021-03-14] MEDS ORDERED: Aspirin 325 MG TABLET PO ONE (21:13)
[2021-03-14] MEDS ORDERED: Divalproex (24 HR) 500 MG TABLET PO SCH (21:15)
[2021-03-14] MEDS: Apixaban 5 MG TABLET PO SCH (22:44)
[2021-03-15 01:18] LABS: Hematocrit 37.9 % (35.3-44.9); Hemoglobin 13.2 g/dL (11.5-15.4); Mean Corpuscular HGB Conc 34.8 g/dL (31.6-35.5); Mean Corpuscular Hemoglobin 31.8 pg (28.0-33.3); Mean Corpuscular Volume 91.3 fL (83.0-100.0); Mean Platelet Volume 10.5 fL (9.4-12.4); Platelet Count 217 K/mcL (140-400); Red Blood Count 4.15 M/mcL (3.82-4.97); Red Cell Distribution Width 13.5 % (11.5-14.5); White Blood Count 7.8 K/mcL (4.3-11.1)
[2021-03-15 01:38] LABS: BUN/Creatinine Ratio 16 (6-26); Blood Urea Nitrogen 11 mg/dL (8-23); Calcium 8.9 mg/dL (8.6-10.3); Carbon Dioxide 27 mEq/L (23-29); Chloride 97 mEq/L (98-107); Glucose 113 mg/dL (70-105); Osmolality,Calculated 268 (280-300); Potassium 3.9 mEq/L (3.5-5.1); Sodium 129 mEq/L (136-145); eGFR For African Americans > 60 (> 60); eGFR For Non-African Americans > 60 (> 60)
[2021-03-15] MEDS ORDERED: Regadenoson 0.4 MG/5 ML SYRINGE IVP ONE (06:15)
[2021-03-15] MEDS ORDERED: Loratadine 10 MG TABLET PO SCH (09:00)
[2021-03-15] MEDS ORDERED: FLUoxetine 20 MG CAPSULE PO SCH (09:00)
[2021-03-15] MEDS ORDERED: Divalproex (24 HR) 250 MG TABLET PO SCH (09:00)
[2021-03-15] MEDS ORDERED: Aspirin 81 MG TAB.CHEW PO SCH (09:00)
[2021-03-15 12:05] VITALS: PULSE 91
[2021-03-15] MEDS: Apixaban 5 MG TABLET PO SCH (12:29)
[2021-03-15 13:38] VITALS: BP 123/80; TEMP 97.8; O2SAT 95
== END 2021-03-15 16:22 | disposition home or self-care (01) ==
LOC: 3BNU 15:35 → EMEROOARM 15:35 → 3BNU 22:28
PROVIDERS: ADMIT Student in an Organized Health Care Education/Training Program; ATTEND Student in an Organized Health Care Education/Training Program

== ENCOUNTER 2021-05-03 06:13 | Inpatient (IN) ==
[~2021-05-03 06:13] MED LIST: Polymyxin B Sulfate 500,000 UNIT, Sodium Chloride IRRigation 1,000 ML IR ONE
[2021-05-03] MEDS ORDERED: CeFAZolin Syr 2,000MG/20 ML 2,000 MG/20 ML SYRINGE IVPB ONE (06:35)
[2021-05-03] MEDS ORDERED: Albuterol 2.5 MG/3 ML NEBULIZER IH PRN ×2 (06:35→17:46)
[2021-05-03] MEDS ORDERED: Famotidine 20 MG/2 ML VIAL IVP ONE (06:43)
[2021-05-03] MEDS ORDERED: Acetaminophen IV 1,000 MG/100 ML BAG IVPB ONE (06:43)
[2021-05-03] MEDS ORDERED: Ringers Solution, Lactated 1,000 ML IVC SCH (06:45)
[2021-05-03] MEDS ORDERED: *HR* Methadone 5 MG TABLET PO ONE ×2 (06:45→06:49)
[2021-05-03] MEDS ORDERED: Bupivacaine/EPI 1:200k 0.25% 50 ML VIAL ONE ×2 (07:12→08:09)
[2021-05-03] MEDS ORDERED: *HR* FentaNYL (PF) 100 MCG/2 ML VIAL ONE (07:52)
[2021-05-03] MEDS ORDERED: Lidocaine -MPF 2% 5 ML VIAL ONE (07:53)
[2021-05-03] MEDS ORDERED: Ondansetron 4 MG/2 ML VIAL ONE (07:53)
[2021-05-03] MEDS ORDERED: *HR* Succinylcholine 200 MG/10 ML VIAL IVP ONE (07:54)
[2021-05-03] MEDS ORDERED: *HR* Remifentanil 1 MG VIAL IVP ONE ×3 (07:54→13:02)
[2021-05-03] MEDS ORDERED: Ondansetron 4 MG/2 ML VIAL IVP PRN ×2 (09:18→17:24)
[2021-05-03] MEDS ORDERED: *HR* Phenylephrine 10 MG/ML VIAL ONE (09:34)
[2021-05-03] MEDS ORDERED: *HR* Labetalol 20 MG/4 ML SYRINGE IVP ONE (13:47)
[2021-05-03] MEDS ORDERED: *HR* Metoprolol 5 MG/5 ML VIAL IVP ONE ×2 (14:00→14:01)
[2021-05-03] MEDS ORDERED: Albuterol 2.5 MG/3 ML NEBULIZER ONE (14:07)
[2021-05-03] MEDS ORDERED: Amiodarone Premix 150 MG/100 ML BAG IVPB ONE (14:20)
[2021-05-03] MEDS ORDERED: Furosemide 20 MG/2 ML VIAL IVP ONE (15:03)
[2021-05-03] MEDS ORDERED: *HR* HYDROcodone/Acet 5/325 mg TABLET PO PRN (17:24)
[2021-05-03] MEDS ORDERED: *HR* OxyCODONE Immed Rel 5 MG TABLET PO PRN (17:24)
[2021-05-03] MEDS ORDERED: Acetaminophen 325 MG TABLET PO PRN (17:24)
[2021-05-03] MEDS ORDERED: Sennosides 8.6 MG TABLET PO PRN (17:24)
[2021-05-03] MEDS ORDERED: Naloxone 0.4 MG/ML INJ IVP PRN (17:24)
[2021-05-03 18:02] LABS: White Blood Count 9.8 K/mcL (4.3-11.1)
[2021-05-03 18:03] LABS: Basophils % 0.2 %; Hematocrit 38.6 % (35.3-44.9); Hemoglobin 12.7 g/dL (11.5-15.4); Immature Granulocytes % 1.6 % (0-4); Lymphocytes # 1.2 K/mcL (0.6-4.6); Lymphocytes % 12.5 %; Mean Corpuscular HGB Conc 32.9 g/dL (31.6-35.5); Mean Corpuscular Hemoglobin 30.5 pg (28.0-33.3); Mean Corpuscular Volume 92.8 fL (83.0-100.0); Mean Platelet Volume 10.7 fL (9.4-12.4); Monocytes # 0.2 K/mcL (0.0-1.3); Monocytes % 2.2 %; Neutrophils # 8.2 K/mcL (1.6-8.9); Platelet Count 216 K/mcL (140-400); Red Blood Count 4.16 M/mcL (3.82-4.97); Red Cell Distribution Width 13.9 % (11.5-14.5); Segmented Neutrophils % 83.5 %
[2021-05-03] MEDS: Ringers Solution, Lactated 1,000 ML IVC SCH (18:18)
[2021-05-03 18:23] LABS: BUN/Creatinine Ratio 13 (6-26); Blood Urea Nitrogen 10 mg/dL (8-23); Calcium 8.7 mg/dL (8.6-10.3); Carbon Dioxide 21 mEq/L (23-29); Chloride 100 mEq/L (98-107); Glucose 170 mg/dL (70-105); Magnesium 1.3 mg/dL (1.6-2.6); Osmolality,Calculated 279 (280-300); Phosphorous 4.1 mg/dL (2.7-4.5); Potassium 3.7 mEq/L (3.5-5.1); Sodium 133 mEq/L (136-145); eGFR For African Americans > 60 (> 60); eGFR For Non-African Americans > 60 (> 60)
[2021-05-03 18:24] LABS: Troponin I < 0.03 ng/mL (< 0.04)
[2021-05-03] MEDS: CeFAZolin 2 GM/120 ML BAG IVPB SCH ×2 (18:25→23:21)
[2021-05-03] MEDS: Divalproex (24 HR) 500 MG TABLET PO SCH (21:05)
[2021-05-03] MEDS: *HR* Metoprolol 5 MG/5 ML VIAL IVP PRN (22:42)
[2021-05-04] MEDS: Ringers Solution, Lactated 1,000 ML IVC SCH (05:36)
[2021-05-04] MEDS ORDERED: FLUoxetine 20 MG CAPSULE PO SCH (09:00)
[2021-05-04] MEDS: Divalproex (24 HR) 250 MG TABLET PO SCH (09:10)
[2021-05-04] MEDS: Furosemide 20 MG TABLET PO SCH (09:10)
[2021-05-04] MEDS: *HR* Metoprolol 5 MG/5 ML VIAL IVP PRN ×2 (12:56→18:15)
[2021-05-04] MEDS: Divalproex (24 HR) 500 MG TABLET PO SCH (21:10)
[2021-05-05 06:38] LABS: Basophils % 0.5 %; Eosinophils % 0.1 %; Hematocrit 36.4 % (35.3-44.9); Hemoglobin 11.8 g/dL (11.5-15.4); Immature Granulocytes % 1.6 % (0-4); Lymphocytes # 1.6 K/mcL (0.6-4.6); Lymphocytes % 18.4 %; Mean Corpuscular HGB Conc 32.4 g/dL (31.6-35.5); Mean Corpuscular Hemoglobin 30.5 pg (28.0-33.3); Mean Corpuscular Volume 94.1 fL (83.0-100.0); Mean Platelet Volume 10.7 fL (9.4-12.4); Monocytes # 0.7 K/mcL (0.0-1.3); Monocytes % 7.4 %; Neutrophils # 6.4 K/mcL (1.6-8.9); Nucleated Red Blood Cells 0.3 /100 WBC (0); Platelet Count 202 K/mcL (140-400); Red Blood Count 3.87 M/mcL (3.82-4.97); Red Cell Distribution Width 14.6 % (11.5-14.5); White Blood Count 8.8 K/mcL (4.3-11.1)
[2021-05-05 07:47] LABS: BUN/Creatinine Ratio 17 (6-26); Blood Urea Nitrogen 13 mg/dL (8-23); Calcium 9.1 mg/dL (8.6-10.3); Carbon Dioxide 28 mEq/L (23-29); Chloride 101 mEq/L (98-107); Glucose 92 mg/dL (70-105); Osmolality,Calculated 274 (280-300); Potassium 4.3 mEq/L (3.5-5.1); Sodium 132 mEq/L (136-145); eGFR For African Americans > 60 (> 60); eGFR For Non-African Americans > 60 (> 60)
[2021-05-05] MEDS: Furosemide 20 MG TABLET PO SCH ×2 (08:22→14:12)
[2021-05-05] MEDS: FLUoxetine 20 MG CAPSULE PO SCH (08:22)
[2021-05-05] MEDS: Divalproex (24 HR) 250 MG TABLET PO SCH (08:22)
[2021-05-05] MEDS: DilTIAZem CD (24hr) 120 MG CAP.ER.24H PO SCH (11:06)
[2021-05-05] MEDS: Divalproex (24 HR) 500 MG TABLET PO SCH (20:28)
[2021-05-06] MEDS: DilTIAZem CD (24hr) 120 MG CAP.ER.24H PO SCH (09:22)
[2021-05-06] MEDS: Furosemide 20 MG TABLET PO SCH (09:22)
[2021-05-06] MEDS: Divalproex (24 HR) 250 MG TABLET PO SCH (09:23)
[2021-05-06] MEDS: FLUoxetine 20 MG CAPSULE PO SCH (09:23)
[2021-05-06] MEDS ORDERED: DilTIAZem CD (24hr) 120 MG CAP.ER.24H PO ONE (10:55)
[2021-05-06] MEDS: *HR* Metoprolol 5 MG/5 ML VIAL IVP PRN (13:17)
[2021-05-06] MEDS: Divalproex (24 HR) 500 MG TABLET PO SCH (21:24)
[2021-05-07] MEDS: DilTIAZem CD (24hr) 240 MG CAP.ER.24H PO SCH (08:59)
[2021-05-07] MEDS: Divalproex (24 HR) 250 MG TABLET PO SCH (08:59)
[2021-05-07] MEDS: FLUoxetine 20 MG CAPSULE PO SCH (09:00)
[2021-05-07] MEDS: Furosemide 20 MG TABLET PO SCH (09:00)
[2021-05-07] MEDS: Divalproex (24 HR) 500 MG TABLET PO SCH (21:29)
[2021-05-08] MEDS: Furosemide 20 MG TABLET PO SCH (09:26)
[2021-05-08] MEDS: FLUoxetine 20 MG CAPSULE PO SCH (09:26)
[2021-05-08] MEDS: DilTIAZem CD (24hr) 240 MG CAP.ER.24H PO SCH (09:27)
[2021-05-08] MEDS: Divalproex (24 HR) 250 MG TABLET PO SCH (09:27)
[2021-05-08 15:46] VITALS: BP 110/64; PULSE 79; TEMP 97.5; O2SAT 95
== END 2021-05-08 17:45 | disposition home health service (06) | DRG 471 ==
LOC: SDCAOSI 06:13 → SUATTDRO 16:31 → 3NENU 16:31
PROVIDERS: ADMIT Surgery Vascular Surgery; ATTEND Hospitalist
PROC: SPICORP (2021-05-03 08:15)

== ENCOUNTER 2021-08-26 19:40 | Inpatient (IN) ==
[2021-08-26] MEDS ORDERED: 0.9 % Sodium Chloride 1,000 ML IVC ONE (20:18)
[2021-08-26 20:33] LABS: Basophils % 0.3 %; Eosinophils % 0.2 %; Hematocrit 37.2 % (35.3-44.9); Hemoglobin 12.6 g/dL (11.5-15.4); Immature Granulocytes % 0.8 % (0-4); Lymphocytes # 1.8 K/mcL (0.6-4.6); Lymphocytes % 13.8 %; Mean Corpuscular HGB Conc 33.9 g/dL (31.6-35.5); Mean Corpuscular Hemoglobin 29.9 pg (28.0-33.3); Mean Corpuscular Volume 88.2 fL (83.0-100.0); Mean Platelet Volume 11.5 fL (9.4-12.4); Monocytes # 1.5 K/mcL (0.0-1.3); Monocytes % 11.2 %; Neutrophils # 9.7 K/mcL (1.6-8.9); Platelet Count 172 K/mcL (140-400); Red Blood Count 4.22 M/mcL (3.82-4.97); Red Cell Distribution Width 14.6 % (11.5-14.5); Segmented Neutrophils % 73.7 %
[2021-08-26 20:34] LABS: White Blood Count 13.2 K/mcL (4.3-11.1)
[2021-08-26 20:44] LABS: INR 1.6; Prothrombin Time 18.3 Seconds (9.4-12.1)
[2021-08-26 20:46] LABS: Activated Partial Thrombo Time 35.4 Seconds (26.0-36.0)
[2021-08-26 20:48] LABS: Alanine Aminotransferase 12 Units/L (7-52); Albumin 4.1 g/dL (3.5-5.7); Albumin/Globulin Ratio 1.2 (1.1-2.2); Alkaline Phosphatase 51 Units/L (34-104); Aspartate Amino Transferase 16 Units/L (13-39); BUN/Creatinine Ratio 24 (6-26); Bilirubin,Total 0.3 mg/dL (0.3-1.0); Blood Urea Nitrogen 21 mg/dL (8-23); Calcium 9.2 mg/dL (8.6-10.3); Carbon Dioxide 21 mEq/L (23-29); Chloride 100 mEq/L (98-107); Creatine Kinase 35 Units/L (30-223); Globulin 3.5 g/dL (2.4-3.5); Glucose 122 mg/dL (70-105); Magnesium 1.8 mg/dL (1.6-2.6); Osmolality,Calculated 276 (280-300); Phosphorous 3.3 mg/dL (2.7-4.5); Potassium 4.9 mEq/L (3.5-5.1); Sodium 131 mEq/L (136-145); Total Protein 7.6 g/dL (6.4-8.9); Troponin I < 0.03 ng/mL (< 0.04); eGFR For African Americans > 60 (> 60); eGFR For Non-African Americans > 60 (> 60)
[2021-08-26 20:50] LABS: Bacteria,Urine Few per hpf (None-Few); Bilirubin,Urine Negative (Negative); Blood,Urine Small (Negative); Clarity,Urine Clear (Clear); Color,Urine Light-Yellow (Yellow); Glucose,Urine (UA) Normal (Normal); Ketones,Urine Negative (Negative); Leukocyte Esterase,Urine Moderate (Negative); Mucus,Urine Few per lpf (None-Few); Nitrite,Urine Negative (Negative); Protein,Urine 50 mg/dL (Neg-Trace); Specific Gravity,Urine 1.025 (1.010-1.025); Squamous Epithelial Cell,Urine Few per hpf (None-Few); Urobilinogen,Urine Normal (Normal); WBC,Urine 15-30 per hpf (0-3)
[2021-08-26 20:52] LABS: VBG Ionized Calcium 1.09 mmol/L (1.15-1.35)
[2021-08-26 21:01] LABS: Thyroid Stimulating Hormone 7.507 mcIU/mL (0.340-5.600)
[2021-08-26] MEDS ORDERED: cefTRIAXone 1,000 MG in 0.9 % Sodium Chloride 10 ML IVP ONE (21:50)
[2021-08-26] MEDS ORDERED: *HR* OxyCODONE Immed Rel 5 MG TABLET PO PRN (21:54)
[2021-08-26] MEDS ORDERED: Acetaminophen 325 MG TABLET PO PRN (21:54)
[2021-08-26] MEDS ORDERED: Melatonin 3 MG TABLET PO PRN (21:54)
[2021-08-26] MEDS ORDERED: Ondansetron ODT 4 MG TAB.RAPDIS SL PRN (21:54)
[2021-08-26] MEDS ORDERED: *HR* HYDROcodone/Acet 5/325 mg TABLET PO PRN (21:54)
[2021-08-26] MEDS ORDERED: Naloxone 0.4 MG/ML INJ IVP PRN (21:54)
[2021-08-27] MEDS: 0.9 % Sodium Chloride 1,000 ML IVC SCH ×2 (00:52→12:38)
[2021-08-27 05:26] LABS: Hematocrit 35.4 % (35.3-44.9); Hemoglobin 11.7 g/dL (11.5-15.4); Mean Corpuscular HGB Conc 33.1 g/dL (31.6-35.5); Mean Corpuscular Hemoglobin 29.9 pg (28.0-33.3); Mean Corpuscular Volume 90.5 fL (83.0-100.0); Mean Platelet Volume 11.3 fL (9.4-12.4); Platelet Count 151 K/mcL (140-400); Red Blood Count 3.91 M/mcL (3.82-4.97); Red Cell Distribution Width 15.2 % (11.5-14.5); White Blood Count 13.1 K/mcL (4.3-11.1)
[2021-08-27 05:46] LABS: BUN/Creatinine Ratio 19 (6-26); Blood Urea Nitrogen 13 mg/dL (8-23); Calcium 8.9 mg/dL (8.6-10.3); Carbon Dioxide 22 mEq/L (23-29); Chloride 104 mEq/L (98-107); Chol/HDL Ratio 2.5 (0-4.9); Cholesterol 98 mg/dL (< 200); Glucose 101 mg/dL (70-105); HDL Cholesterol 39 mg/dL (40-59); LDL Cholesterol,Calculated 50 mg/dL (< 100); Magnesium 1.9 mg/dL (1.6-2.6); Osmolality,Calculated 280 (280-300); Phosphorous 2.9 mg/dL (2.7-4.5); Potassium 3.9 mEq/L (3.5-5.1); Sodium 135 mEq/L (136-145); Triglycerides 46 mg/dL (< 150); eGFR For African Americans > 60 (> 60); eGFR For Non-African Americans > 60 (> 60)
[2021-08-27] MEDS: cefTRIAXone 1,000 MG in 0.9 % Sodium Chloride Mini Bag 100 ML IVPB SCH (07:35)
[2021-08-27] MEDS: Divalproex (24 HR) 500 MG TABLET PO SCH (19:53)
[2021-08-27] MEDS: Apixaban 5 MG TABLET PO SCH (19:53)
[2021-08-28] MEDS: cefTRIAXone 1,000 MG in 0.9 % Sodium Chloride Mini Bag 100 ML IVPB SCH (07:48)
[2021-08-28] MEDS: Divalproex (24 HR) 250 MG TABLET PO SCH (07:48)
[2021-08-28] MEDS: DilTIAZem CD (24hr) 240 MG CAP.ER.24H PO SCH (07:48)
[2021-08-28] MEDS: Aspirin Enteric Coated 81 MG Tablet PO SCH (07:48)
[2021-08-28] MEDS: Apixaban 5 MG TABLET PO SCH ×2 (07:48→21:32)
[2021-08-28] MEDS: Divalproex (24 HR) 500 MG TABLET PO SCH (21:32)
[2021-08-29] MEDS: Apixaban 5 MG TABLET PO SCH ×2 (07:42→22:14)
[2021-08-29] MEDS: Aspirin Enteric Coated 81 MG Tablet PO SCH (07:42)
[2021-08-29] MEDS: Divalproex (24 HR) 250 MG TABLET PO SCH (07:42)
[2021-08-29] MEDS: DilTIAZem CD (24hr) 240 MG CAP.ER.24H PO SCH (07:42)
[2021-08-29] MEDS: cefTRIAXone 1,000 MG in 0.9 % Sodium Chloride Mini Bag 100 ML IVPB SCH (07:43)
[2021-08-29 18:09] LABS: Influenza A PCR Negative (Negative); Influenza B PCR Negative (Negative); Resp. Syncytial Virus PCR Negative (Negative)
[2021-08-29 18:13] LABS: SARS-CoV-2 by PCR (In House) Negative (Negative)
[2021-08-29] MEDS: Divalproex (24 HR) 500 MG TABLET PO SCH (22:14)
[2021-08-30 07:23] VITALS: BP 112/73; PULSE 63; TEMP 97.5; O2SAT 94
[2021-08-30] MEDS: cefTRIAXone 1,000 MG in 0.9 % Sodium Chloride Mini Bag 100 ML IVPB SCH (07:43)
[2021-08-30] MEDS: Apixaban 5 MG TABLET PO SCH (07:44)
[2021-08-30] MEDS: Divalproex (24 HR) 250 MG TABLET PO SCH (07:44)
[2021-08-30] MEDS: Aspirin Enteric Coated 81 MG Tablet PO SCH (07:44)
[2021-08-30] MEDS: DilTIAZem CD (24hr) 240 MG CAP.ER.24H PO SCH (07:44)
== END 2021-08-30 11:23 | DRG 690 ==
LOC: 3BNU 19:40 → EMEROOARM 19:40 → SUATTDRO 23:24 → 3BNU 08-27 00:34 → SUATTDRO 08-27 14:24
PROVIDERS: ADMIT Internal Medicine; ATTEND Nurse Practitioner